=== PATIENT | female | born 1950 | race Caucasian/White ===

== ENCOUNTER 2022-03-27 19:10 | Inpatient (IN) | payer OTHER, BC ==
[2022-03-27 19:52] LABS: Absolute Lymphocytes (CBC) 0.7 K/uL (0.7-4.9); Hematocrit 29.2 % (36.0-45.0); Lymphocytes % 6.4 % (15.3-44.8); MCV 90.1 fL (80-100); MPV 8.5 fL (7.6-11.3); RBC Red Blood Cell Count 3.24 M/uL (3.86-4.86)
[2022-03-27 19:57] LABS: Protime INR 1.37
[2022-03-27 20:11] LABS: Albumin 2.3 g/dL (3.4-5.0); Bilirubin Total 0.5 mg/dL (0.2-1.0); Potassium 3.3 mmol/L (3.5-5.1); Protein, Total 7.1 g/dL (6.4-8.2)
--- NOTE | 2022-03-27 20:28 | RAD REPORT ---
EXAM DESCRIPTION: RAD - Chest Single View - 03/27/2022 8:22 pm CLINICAL HISTORY: CONGESTION Chest pain. COMPARISON: No comparisons FINDINGS: Portable technique limits examination quality. Mild interstitial pulmonary edema. The heart is mildly prominent in size. Sternotomy wires are presen t.Cervical spine hardware plate. IMPRESSION: Mild CHF.
--- NOTE | 2022-03-27 20:29 | RAD REPORT ---
EXAM DESCRIPTION: RAD - Tib Fib Right - 03/27/2022 8:22 pm CLINICAL HISTORY: PAIN COMPARISON: No comparisons FINDINGS: Soft tissue swelling is seen involving the leg and ankle. Advanced degenerative change inv olves the ankle. No acute fracture seen.
--- NOTE | 2022-03-27 20:29 | RAD REPORT ---
EXAM DESCRIPTION: RAD - Knee Right 3 View - 03/27/2022 8:22 pm CLINICAL HISTORY: PAIN COMPARISON: No comparisons FINDINGS: Mild tricompartmental osteoarthritis. No fracture or dislocation seen. No radiographic fin ding to indicate osteomyelitis.
--- NOTE | 2022-03-27 20:31 | RAD REPORT ---
EXAM DESCRIPTION: RAD - Foot Right 3 View - 03/27/2022 8:22 pm CLINICAL HISTORY: SWELLING COMPARISON: No comparisons FINDINGS: Marked flatfoot deformity is present. Advanced degenerative changes are present in the ank le. No soft tissue gas seen. No acute fracture. No radiographic finding to indicate osteomyelitis.
[2022-03-27 20:32] LABS: Blood Morphology Comment NOT SEEN (NOT SEEN); Platelet Estimate ADEQ
[2022-03-27] MEDS ORDERED: VANCOMYCIN 1 GM/VIAL ONE (20:39)
[2022-03-27] MEDS ORDERED: ACETAMINOPHEN 500 MG TAB ONE (20:39)
[2022-03-27] MEDS ORDERED: NA CHLORIDE 0.9% 100 ML ONE (20:40)
[2022-03-27] MEDS ORDERED: PIPERACIL/TAZO 3.375 GM VIAL IV ONE (20:40)
[2022-03-27] MEDS ORDERED: NA CHLORIDE 0.9% 250 ML ONE (20:40)
[2022-03-27] MEDS ORDERED: NA CHLORIDE 0.9% 1,000 ML ONE (20:40)
--- NOTE | 2022-03-27 20:40 | RAD REPORT ---
EXAM DESCRIPTION: US - Extrem Venous W Compress Samir - 03/27/2022 8:31 pm CLINICAL HISTORY: PAIN Bilateral leg edema and swelling. COMPARISON: Extremity Venous Uni Ltd dated 03/11/2022 TECHNIQUE: Real-time sonographic interrogation of the left and right lower extremity deep venous sys tems was performed. FINDINGS: Normal compressibility, flow augmentation, phasic flow and spontaneous flow is identified in both the left and right lower extremity deep venous systems. IMPRESSION: No sonographic evidence of left or right lower extremity deep venous thrombosis.
--- NOTE | 2022-03-27 20:41 | RAD REPORT ---
EXAM DESCRIPTION: US - Lower Extremity Arterial Bilat - 03/27/2022 8:31 pm CLINICAL HISTORY: PAIN COMPARISON: No comparisons TECHNIQUE: Bilateral lower extremity arterial Doppler examination was performed with velocity measur ements. FINDINGS: Right lower extremity arterial system is triphasic. Left lower extremity arterial system is triphasic to biphasic, however generally monophasic in appear ance in the dorsalis pedis. No complete occlusion or high-grade stenosis. IMPRESSION: Mild distal peripheral vascular disease left lower extremity.
--- NOTE | 2022-03-27 20:48 | RAD REPORT ---
EXAM DESCRIPTION: CT - Head Brain Wo Cont - 03/27/2022 8:42 pm CLINICAL HISTORY: Generalized weakness Headache, drowsiness COMPARISON: Foot Right 3 View dated 03/27/2022 TECHNIQUE: All CT scans are performed using dose optimization technique as appropriate and may inclu de automated exposure control or mA/KV adjustment according to patient size. FINDINGS: No intracranial hemorrhage, hydrocephalus or extra-axial fluid collection.Moderate general ized brain atrophy is present with mild periventricular and deep white matter chronic microvascular i schemic changes.No areas of brain edema or evidence of midline shift. The paranasal sinuses and mastoids are clear. The calvarium is intact. IMPRESSION: No acute intracranial abnormality.
[2022-03-27 21:33] LABS: Urine Blood 2+ (Negative); Urine Glucose Negative (Negative); Urine Protein 1+ (Negative)
[2022-03-27 22:16] LABS: Urine Bacteria >50 /HPF (<20); Urine RBC 21-50 /HPF (None Seen)
--- NOTE | 2022-03-27 22:45 | ER ---
Nurse's Notes [facility] Name: Sakshi Ferrell Age: 71 yrs Sex: Female : 1950 Arrival Date: 03/27/2022 Time: 19:13 Bed 5 Private MD: Diagnosis: UTI/ Urinary tract infection, site not specified;Cellulitis of right lower limb;Muscle weakness (generalized) Presentation: 03/27 19:18 Chief complaint: EMS states: pt has been weak over the last several days, today pt fell as6 d/t weakness, pt has wounds to BLE, denies any injuries from fall, neg LOC. Coronavirus screen: At this time, the client does not indicate any symptoms associated with coronavirus-19. Ebola Screen: No symptoms or risks identified at this time. Initial Sepsis Screen: Does the patient meet any 2 criteria? RR > 20 per min. Temp <36.0*C (96.8*F)) or > 38.3*C (100.9*F). HR > 90 bpm. Yes Does the patient have a suspected source of infection? Yes: Skin breakdown/wound. Risk Assessment: Do you want to hurt yourself or someone else? Patient reports no desire to harm self or others. Onset of symptoms is unknown. Care prior to arrival: Medication(s) given: Normal saline infusion, IV initiated. 18 GA, in the left antecubital area. 19:18 Method Of Arrival: EMS: [facility] as6 19:18 Acuity: ISMA 2 as6 Historical: - Allergies: 19:22 No Known Allergies; as6 - PMHx: 19:22 Degenerative disc disease; Depression; Hyperlipidemia; Diabetes mellitus; Hypertensive as6 disorder; - PSHx: 19:22 open heart; as6 - Immunization history:: Adult Immunizations up to date. - Social history:: Smoking status: Patient denies any tobacco usage or history of. Screenin:23 Abuse screen: Denies threats or abuse. Denies injuries from another. Nutritional as6 screening: No deficits noted. Tuberculosis screening: No symptoms or risk factors identified. Fall Risk Fall in past 12 months (25 points). Total Hu Fall Scale indicates Low Risk Score (25-44 pts). Side Rails Up X 2 Frequent Obs/Assesments occuring As available Patient and Family Educated on Fall Prevention Program and strategies. Assessment: 19:25 General: Appears unkempt, Behavior is calm, cooperative. Pain: Complains of pain in as6 buttocks, right leg and left leg. Neuro: Level of Consciousness is awake, alert, obeys commands, Oriented to person, place, time, situation. Cardiovascular: Rhythm is sinus tachycardia. Cardiovascular: Edema is 3+ to left midcalf, left ankle, left foot, left toes, right midcalf, right ankle, right foot and right toes pitting to left midcalf, left ankle, left foot, left toes, right midcalf, right ankle, right foot and right toes. Respiratory: Respiratory effort is even, unlabored. Derm: Wound noted right leg and left leg Wound is diabetic ulcers, BLE weeping. Vital Signs: 19:18 BP 115 / 76; Pulse 104; Resp 21 S; Temp 101.0(O); Pulse Ox 96% on R/A; Weight 74.84 kg as6 (R); Height 5 ft. 4 in. (162.56 cm) (R); Pain 8/10; 20:30 BP 126 / 66; Pulse 107; Resp 15 S; Pulse Ox 96% on R/A; as6 22:54 Temp 99(O); tw5 22:54 Pulse 94; tw5 19:18 Body Mass Index 28.32 (74.84 kg, 162.56 cm) as6 ED Course: 19:13 Patient arrived in ED. wm 19:18 Randell Black, ANAYELI is Primary Nurse. as6 19:21 Bonifacio Whitley MD is Attending Physician. 7 19:22 Triage completed. as6 19:23 Arm band placed on. as6 19:23 Bed in low position. Call light in reach. Side rails up X2. Client placed on continuous as6 cardiac and pulse oximetry monitoring. NIBP monitoring applied. 20:24 Chest Single View XRAY In Process Unspecified. EDMS 20:24 Knee Right 3 View XRAY In Process Unspecified. EDMS 20:24 Tib Fib Right XRAY In Process Unspecified. EDMS 20:24 Foot Right 3 View XRAY In Process Unspecified. EDMS 20:33 US Extremity Venous W Compression Samir In Process Unspecified. EDMS 20:33 US LE Arterial Bilateral In Process Unspecified. EDMS 20:44 CT Head Brain wo Cont In Process Unspecified. EDMS 21:00 Maintain EMS IV. Dressing intact. Good blood return noted. Site clean \\T\\ dry. Gauge \\T\\ as 6 site: 18g LAC. 21:37 COVID-19 SARS RT PCR (Document "Date of Onset" if Symptomatic) Sent. kd3 21:37 Influenza Screen (a \\T\\ B) Sent. kd3 21:43 COVID-19 SARS RT PCR (Document "Date of Onset" if Symptomatic) Sent. kd3 21:43 Influenza Screen (a \\T\\ B) Sent. kd3 22:44 De Roth MD is Hospitalizing Provider. 7 23:43 No provider procedures requiring assistance completed. Patient admitted, IV remains in as6 place. Administered Medications: 20:23 CANCELLED (Duplicate Order): Acetaminophen 1000 mg PO once kd3 21:17 Drug: Acetaminophen 1000 mg Route: PO; kd3 23:44 Follow up: Response: No adverse reaction as6 21:18 Drug: NS 0.9% 1000 ml Route: IV; Rate: 1000 ml; Site: left antecubital; kd3 23:45 Follow up: Response: No adverse reaction; IV Status: Infusion continued; IV Intake: as6 1000ml 21:37 Drug: Zosyn (piperacillin-tazobactam) 3.375 grams Route: IVPB; Infused Over: 60 mins; kd3 Site: left antecubital; 21:42 Follow up: IV Status: Completed infusion kd3 21:42 Drug: vancoMYCIN 1 grams Route: IVPB; Infused Over: 2 hrs; Site: left antecubital; kd3 23:45 Follow up: Response: No adverse reaction; IV Status: Infusion continued; IV Intake: as6 250ml Medication: 21:38 VIS not applicable for this client. kd3 Intake: 23:45 IV: 1000ml; Total: 1000ml. as6 23:45 IV: 250ml; Total: 1250ml. as6 Outcome: 22:45 Decision to Hospitalize by Provider. [facility] 23:44 Admitted to Med/surg accompanied by tech, family with patient, via stretcher, room 219, as6 with chart, Report called to Loreta GUADALUPE 23:44 Condition: stable 23:44 Instructed on the need for admit. 23:51 Patient left the ED. as6 Signatures: Dispatcher [employer] Bonifacio Monzon MD MD mh7 Carol Quintero Tiffany tw5 Randell Black RN RN as6 Cheryl Mathis RN RN kd3
--- NOTE | 2022-03-27 22:46 | EDPHYS ---
Physician Documentation [facility] Name: Sakshi Ferrell Age: 71 yrs Sex: Female : 1950 Arrival Date: 03/27/2022 Time: 19:13 Bed 5 Private MD: ED Physician Bonifacio Whitley HPI: 03/27 19:25 This 71 yrs old Female presents to ER via EMS with complaints of General Weakness. mh7 19:25 The patient's problem is reported as weakness, that is generalized. Onset: The mh7 symptoms/episode began/occurred 3 day(s) ago. Duration: The episode is continuous. Context: the episode(s) was witnessed, by no one, symptoms became apparent at an unknown time, occurred at home, occurred while the patient was standing. The symptoms are alleviated by nothing. The symptoms are aggravated by standing. Associated signs and symptoms: Pertinent positives: weakness, Pertinent negatives: abdominal pain, agitation, ataxia, blurred vision, chest pain, combativeness, confusion, diaphoresis, diarrhea, dizziness, headache, lightheadedness, nausea, numbness, palpitations, seizure, shortness of breath, tingling, vertigo, vomiting. Severity of symptoms: At their worst the symptoms were moderate 2 day(s) ago, in the emergency department the symptoms are unchanged. Historical: - Allergies: 19:22 No Known Allergies; as6 - PMHx: 19:22 Degenerative disc disease; Depression; Hyperlipidemia; Diabetes mellitus; Hypertensive as6 disorder; - PSHx: 19:22 open heart; as6 - Immunization history:: Adult Immunizations up to date. - Social history:: Smoking status: Patient denies any tobacco usage or history of. ROS: 19:25 Constitutional: Negative for fever, chills, and weight loss, Eyes: Negative for injury, mh7 pain, redness, and discharge, ENT: Negative for injury, pain, and discharge, Neck: Negative for injury, pain, and swelling, Cardiovascular: Negative for chest pain, palpitations, and edema, Respiratory: Negative for shortness of breath, cough, wheezing, and pleuritic chest pain, Abdomen/GI: Negative for abdominal pain, nausea, vomiting, diarrhea, and constipation, Back: Negative for injury and pain, : Negative for injury, bleeding, discharge, and swelling. 19:25 Psych: Negative for depression, anxiety, suicide ideation, homicidal ideation, and hallucinations, Allergy/Immunology: Negative for hives, rash, and allergies, Endocrine: Negative for neck swelling, polydipsia, polyuria, polyphagia, and marked weight changes, Hematologic/Lymphatic: Negative for swollen nodes, abnormal bleeding, and unusual bruising. 19:25 Neuro: Negative for altered mental status, dizziness, headache, hearing loss, loss of consciousness, numbness, seizure activity, speech changes, syncope, near syncope, tingling, tinnitus, tremor, visual changes. Exam: 19:25 Head/Face: Normocephalic, atraumatic. Eyes: Pupils equal round and reactive to light, mh7 extra-ocular motions intact. Lids and lashes normal. Conjunctiva and sclera are non-icteric and not injected. Cornea within normal limits. Periorbital areas with no swelling, redness, or edema. ENT: Nares patent. No nasal discharge, no septal abnormalities noted. Tympanic membranes are normal and external auditory canals are clear. Oropharynx with no redness, swelling, or masses, exudates, or evidence of obstruction, uvula midline. Mucous membranes moist. Neck: Trachea midline, no thyromegaly or masses palpated, and no cervical lymphadenopathy. Supple, full range of motion without nuchal rigidity, or vertebral point tenderness. No Meningismus. Chest/axilla: Normal chest wall appearance and motion. Nontender with no deformity. No lesions are appreciated. 19:25 Respiratory: Lungs have equal breath sounds bilaterally, clear to auscultation and percussion. No rales, rhonchi or wheezes noted. No increased work of breathing, no retractions or nasal flaring. Abdomen/GI: Soft, non-tender, with normal bowel sounds. No distension or tympany. No guarding or rebound. No evidence of tenderness throughout. Back: No spinal tenderness. No costovertebral tenderness. Full range of motion. 19:25 Constitutional: The patient appears in no acute distress, alert, awake, uncomfortable. 19:25 Cardiovascular: Rate: tachycardic, Rhythm: regular, Pulses: no pulse deficits are appreciated, Heart sounds: normal, normal S1and S2, Edema: pedal edema, that is mild, JVD: is not appreciated. 19:25 Musculoskeletal/extremity: Extremities: noted in the right leg: erythema, swelling, noted in the left leg: erythema, ROM: limited active range of motion, in the left leg, limited passive range of motion, in the left leg, Circulation is intact in all extremities. Sensation intact. Compartment Syndrome exam of affected extremity: is normal. no numbness, no tingling, no sensation deficit, no palor, no weak pulses, Joints: the right knee displays swelling. 19:25 Skin: cellulitis, that is moderate, confluent, on the left leg. 19:25 Neuro: Orientation: appropriate for stated age, Mentation: appropriate for stated age, Memory: appropriate for stated age, Cranial nerves: grossly normal, Cerebellar function: is grossly normal based on the patient's age, Motor: is grossly normal based on the patient's age, Sensation: no obvious gross deficits, Gait: not tested. seizure activity, is not displayed by the patient, Abnormal movements: there are no abnormal movements. 22:46 Radiologist reports: No acute intracranial findings mh7 Vital Signs: 19:18 BP 115 / 76; Pulse 104; Resp 21 S; Temp 101.0(O); Pulse Ox 96% on R/A; Weight 74.84 kg as6 (R); Height 5 ft. 4 in. (162.56 cm) (R); Pain 8/10; 20:30 BP 126 / 66; Pulse 107; Resp 15 S; Pulse Ox 96% on R/A; as6 22:54 Temp 99(O); tw5 22:54 Pulse 94; tw5 19:18 Body Mass Index 28.32 (74.84 kg, 162.56 cm) as6 MDM: 22:43 Differential diagnosis: CVA, TIA, metabolic disorder, drug effects, Fracture, UTI, mh7 cellulitis. Data reviewed: vital signs, nurses notes, lab test result(s), cardiac enzymes, CBC, electrolytes, Flu: negative urinalysis, EKG, radiologic studies, CT scan, plain films, ultrasound. Data interpreted: Pulse oximetry: on room air is 96 %. Interpretation: normal. Counseling: I had a detailed discussion with the patient and/or guardian regarding: the historical points, exam findings, and any diagnostic results supporting the discharge/admit diagnosis, the presence of at least one elevated blood pressure reading (>120/80) during this emergency department visit, lab results, radiology results, the need for further work-up and treatment in the hospital. Response to treatment: the patient's symptoms have mildly improved after treatment. 22:45 Patient medically screened. [facility] 03/27 19:31 Order name: Blood Culture Adult (2) [facility] 03/27 19:31 Order name: CBC with Diff; Complete Time: 21:00 [facility] 03/27 19:31 Order name: CMP; Complete Time: 21:00 [facility] 03/27 19:31 Order name: Lactate; Complete Time: 21:00 [facility] 03/27 19:31 Order name: Protime (+inr); Complete Time: 21:00 [facility] 03/27 19:31 Order name: Ptt, Activated; Complete Time: 21:00 [facility] 03/27 19:31 Order name: Urine Culture [facility] 03/27 19:31 Order name: Urine Microscopic Only; Complete Time: 22:27 [facility] 03/27 19:30 Order name: Chest Single View XRAY; Complete Time: 21:00 [facility] 03/27 19:33 Order name: Knee Right 3 View XRAY; Complete Time: 21:00 [facility] 03/27 19:33 Order name: Tib Fib Right XRAY; Complete Time: 21:00 [facility] 03/27 19:33 Order name: Foot Right 3 View XRAY; Complete Time: 21:00 [facility] 03/27 19:34 Order name: US Extremity Venous W Compression Samir; Complete Time: 21:00 [facility] 03/27 19:39 Order name: COVID-19 SARS RT PCR (Document "Date of Onset" if Symptomatic); Complete [facility] Time: 22:36 03/27 19:39 Order name: Influenza Screen (a \\T\\ B); Complete Time: 22:33 [facility] 03/27 20:32 Order name: Manual Differential; Complete Time: 21:00 [facility] 03/27 21:33 Order name: Urine Dipstick-Ancillary; Complete Time: 21:55 [facility] 03/27 21:35 Order name: Urine Dipstick-Ancillary [facility] 03/27 21:38 Order name: Glucose, Ancillary Testing; Complete Time: 21:55 [facility] 03/27 23:07 Order name: Basic Metabolic Panel [facility] 03/27 23:07 Order name: Basic Metabolic Panel [facility] 03/27 23:07 Order name: CBC with Automated Diff [facility] 03/27 23:07 Order name: CBC with Automated Diff EDMS 03/27 19:30 Order name: Accucheck; Complete Time: 21:37 [facility] 03/27 19:30 Order name: Cardiac monitoring; Complete Time: 19:33 [facility] 03/27 19:30 Order name: EKG - Nurse/Tech; Complete Time: 20:02 [facility] 03/27 19:30 Order name: IV Saline Lock - Large Bore; Complete Time: 19:33 [facility] 03/27 19:30 Order name: Labs collected and sent; Complete Time: 20:27 [facility] 03/27 19:30 Order name: O2 Per Protocol; Complete Time: 19:33 [facility] 03/27 19:30 Order name: O2 Sat Monitoring; Complete Time: 19:33 [facility] 03/27 19:30 Order name: Urine Dipstick-Ancillary (obtain specimen); Complete Time: 21:37 [facility] 03/27 19:31 Order name: Accucheck; Complete Time: 21:37 [facility] 03/27 19:31 Order name: Cardiac monitoring; Complete Time: 19:32 [facility] 03/27 19:31 Order name: EKG - Nurse/Tech; Complete Time: 20:02 [facility] 03/27 19:31 Order name: IV Saline Lock - Large Bore; Complete Time: 19:32 [facility] 03/27 19:31 Order name: Labs collected and sent; Complete Time: 20:23 [facility] 03/27 19:31 Order name: O2 Per Protocol; Complete Time: 19:33 [facility] 03/27 19:31 Order name: O2 Sat Monitoring; Complete Time: 19:33 [facility] 03/27 19:31 Order name: Urine Dipstick-Ancillary (obtain specimen); Complete Time: 21:37 [facility] 03/27 19:37 Order name: US LE Arterial Bilateral; Complete Time: 21:00 [facility] 03/27 19:39 Order name: CT Head Brain wo Cont; Complete Time: 21:00 [facility] 03/27 23:07 Order name: Regular EDMS Administered Medications: 20:23 CANCELLED (Duplicate Order): Acetaminophen 1000 mg PO once kd3 21:17 Drug: Acetaminophen 1000 mg Route: PO; kd3 23:44 Follow up: Response: No adverse reaction as6 21:18 Drug: NS 0.9% 1000 ml Route: IV; Rate: 1000 ml; Site: left antecubital; kd3 23:45 Follow up: Response: No adverse reaction; IV Status: Infusion continued; IV Intake: as6 1000ml 21:37 Drug: Zosyn (piperacillin-tazobactam) 3.375 grams Route: IVPB; Infused Over: 60 mins; kd3 Site: left antecubital; 21:42 Follow up: IV Status: Completed infusion kd3 21:42 Drug: vancoMYCIN 1 grams Route: IVPB; Infused Over: 2 hrs; Site: left antecubital; kd3 23:45 Follow up: Response: No adverse reaction; IV Status: Infusion continued; IV Intake: as6 250ml Disposition Summary: 03/27/22 22:45 Hospitalization Ordered Hospitalization Status: Inpatient Admission [facility] Provider: De Roth [facility] Location: Telemetry/MedSurg (Inpatient) [facility] Condition: Stable [facility] Problem: new [facility] Symptoms: have improved [facility] Bed/Room Type: Standard [facility] Room Assignment: 219(03/27/22 23:32) Diagnosis - UTI/ Urinary tract infection, site not specified 7 - Cellulitis of right lower limb mh7 - Muscle weakness (generalized) [facility] Forms: - Medication Reconciliation Form 7 - SBAR form 7 Signatures: Dispatcher [employer] EDMS Rika Carballo RN RN Bonifacio Whitley MD MD 7 Randell Black RN RN as6 Cheryl Mathis RN RN kd3 Corrections: (The following items were deleted from the chart) 19:34 19:32 Chest Single View+RAD.RAD.BRZ ordered. EDMS EDMS 19:50 19:31 COMPREHENSIVE METABOLIC PANEL+C.LAB.BRZ ordered. EDMS EDMS 19:50 19:31 LACTATE+C.LAB.BRZ ordered. EDMS EDMS 19:51 19:31 CBC+H.LAB.BRZ ordered. EDMS EDMS 19:51 19:31 PROTIME (+INR)+COAG.LAB.BRZ ordered. EDMS EDMS 19:51 19:31 PTT, ACTIVATED+COAG.LAB.BRZ ordered. EDMS EDMS 20:23 19:30 Acetaminophen 1000 mg PO once ordered. kd3 kd3 21:57 19:31 BLOOD CULTURE*+BA.LAB.BRZ ordered. EDMS EDMS 23:32 22:45 mh7
[2022-03-27] MEDS ORDERED: ACETAMINOPHEN 500 MG TAB PO PRN (23:02)
[2022-03-27] MEDS ORDERED: ONDANSETRON 4 MG/2 ML VIAL IV PRN (23:02)
--- NOTE | 2022-03-27 23:40 | P.HP ---
Certification for Inpatient Patient admitted to: Inpatient With expected LOS: >2 Midnights Patient will require the following post-hospital care: Home Health Services Practitioner: I am a practitioner with admitting privileges, knowledge of patient current condition, hospital course, and medical plan of care. Services: Services provided to patient in accordance with Admission requirements found in Title 42 Section 412.3 of the Code of Federal Regulations Patient History Date of Service: 03/28/22 Reason for admission: Sepsis, right lower extremity cellulitis History of Present Illness: 71-year-old female patient with history of depression and osteoarthritis involving the lower extremity who was evaluated in the ED for episode of pain and redness in the right lower extremity. She reported that she been having difficulty ambulating and then she had a fall episode and she bruised her knee and the right. She subsequently developed hyperemia and increased swelling and pain in the right lower extremity. She also had episode of chills and rigors. In the emergency room she was found to have significant hyperemic knee with bruises down to the foot. She was worked up with imaging studies that revealed no acute fracture involving the right lower extremity however she had significant osteoarthritis of the right knee and degenerative changes of the right ankle. She also had a DVT screen that was negative. She was started on broad-spectrum antibiotic therapy and was admitted for inpatient care. Allergies No Known Allergies Allergy (Unverified 12/16/15 17:10) Home Medications: Citalopram Hydrobromide [Citalopram HBr] 40 mg PO DAILY 07/27/21 Gabapentin 300 mg PO TID 07/27/21 Multivit-Min/FA/Lycopen/Lutein [Centrum Silver Tablet] 1 each PO DAILY 07/27/21 Potassium Chloride 20 meq PO DAILY 07/27/21 - Past Medical/Surgical History Diabetic: No -: [place] -: AAA repair -: wrist fx -: bunion sx - Social History Alcohol use: Yes Review of Systems General: Fever, Chills Eyes: Unremarkable ENT: Unremarkable Respiratory: Unremarkable Cardiovascular: Unremarkable Gastrointestinal: Unremarkable Genitourinary: Unremarkable Musculoskeletal: Leg Pain Integumentary: Bruising Neurological: Unremarkable Physical Examination - Physical Exam General: Alert, Oriented x3 HEENT: Atraumatic, Normocephalic Neck: Supple Respiratory: Normal air movement Cardiovascular: Regular rate/rhythm, Normal S1 S2 Gastrointestinal: Soft and benign Musculoskeletal: Swelling, Erythema, Tenderness, Warmth (involving the right leg.) - Studies Laboratory Data (last 24 hrs) 03/27/22 19:35: Sodium 131 L, Potassium 3.3 L, BUN 21 H, Creatinine 0.62, Glucose 116 H, Total Bilirubin 0.5, AST 50 H, ALT 53, Alkaline Phosphatase 265 H 03/27/22 19:30: PT Cancelled, INR Cancelled, APTT Cancelled 03/27/22 19:30: Sodium Cancelled, Potassium Cancelled, BUN Cancelled, Creatinine Cancelled, Glucose Cancelled, Total Bilirubin Cancelled, AST Cancelled, ALT Cancelled, Alkaline Phosphatase Cancelled 03/27/22 19:30: WBC Cancelled, Hgb Cancelled, Hct Cancelled, Plt Count Cancelled 03/27/22 19:25: PT 15.2 H, INR 1.37, APTT 29.5 03/27/22 19:25: WBC 11.3 H, Hgb 9.5 L, Hct 29.2 L, Plt Count 353 Microbiology Data (last 24 hrs): 03/27/22 21:15 Nasopharnyx Influenza Type A Antigen Screen - Final 03/27/22 21:15 Nasopharnyx Influenza Type B Antigen Screen - Final Assessment and Plan - Plan Cellulitis of right lower leg Sepsispresent on admission Plan: Significant hyperemia and infection involving the right lower extremity. There is significant concern for sepsis as source is the right lower extremity soft tissue infection. X-ray did not show any dislocation or bone infection We have obtained blood culture. Will continue empiric antibiotic of cefepime and vancomycin pending further review. Will continue routine care with pain control medications. Will continue IV fluid for cardiovascular support. Will follow cultures and symptomatology closely. Prophylaxis: Lovenox for DVT prophylaxis CODE STATUS: Full code Disposition: We will treat her cellulitis and sepsis and discharge her once clinically stable. - Advance Directives Does patient have a Living Will: No Does patient have a Durable POA for Healthcare: No
[2022-03-28 06:06] LABS: Absolute Lymphocytes (CBC) 1.2 K/uL (0.7-4.9); Hematocrit 28.1 % (36.0-45.0); Lymphocytes % 10.3 % (15.3-44.8); MCV 90.3 fL (80-100); RBC Red Blood Cell Count 3.11 M/uL (3.86-4.86)
[2022-03-28 06:24] LABS: Potassium 3.6 mmol/L (3.5-5.1)
[2022-03-28] MEDS: ENOXAPARIN 40 MG/0.4 ML SQ SCH (08:13)
[2022-03-28] MEDS: CEFEPIME 1 GM in NA CHLORIDE 0.9% 100 ML IV SCH ×2 (08:13→21:08)
[2022-03-28] MEDS: MORPHINE 2 MG/ML SYR IV PRN ×2 (08:23→21:12)
[2022-03-28] MEDS: VANCOMYCIN 1.25 GM in NA CHLORIDE 0.9% 250 ML IVPB SCH ×2 (08:55→21:12)
[2022-03-28] MEDS ORDERED: POTASSIUM CL SA 10 MEQ TAB PO ONE (09:00)
[2022-03-28] MEDS ORDERED: VANCOMYCIN 1.25 GM in NA CHLORIDE 0.9% 250 ML IVPB SCH (09:00)
[2022-03-28] MEDS ORDERED: VANCOMYCIN 1.5 GM in NA CHLORIDE 0.9% 500 ML IVPB SCH (09:00)
[2022-03-28 09:14] LABS: Magnesium 1.8 mg/dL (1.8-2.4); Phosphorus 2.9 mg/dL (2.5-4.9)
--- NOTE | 2022-03-28 12:42 | EKG ---
Test Date: 2022-03-27 Test Time: 19:44:28 Rag Boiler: MEASUREMENT RESULTS: Intervals: Rate: 103 NH: 132 QRSD: 76 QT: 354 QTc: 463 [place]: P: 26 NH: 132 QRS: 42 T: 51 INTERPRETIVE STATEMENTS: Sinus tachycardia Low voltage QRS Nonspecific ST abnormality Abnormal ECG Compared to ECG 12/16/2015 14:44:18 Low QRS voltage now present ST (T wave) deviation now present Sinus rhythm no longer present Prolonged QT interval no longer present Electronically Signed On 03-28-22 12:39:42 CDT by Isac Koroma
--- NOTE | 2022-03-28 13:32 | P.PN ---
Subjective Date of Service: 03/28/22 Chief Complaint: Sepsis, right lower extremity cellulitis Subjective: Improving No acute events since admission. She reports that her right lower extremity pain has improved. No fevers since admission. Review of Systems General: Unremarkable Eyes: Unremarkable ENT: Unremarkable Respiratory: Unremarkable Cardiovascular: Unremarkable Gastrointestinal: Unremarkable Genitourinary: Unremarkable Musculoskeletal: Leg Pain (right) Integumentary: Unremarkable Neurological: Unremarkable Lymphatics: Unremarkable Physical Examination - Vital Signs Temperature: 97.6 F Blood Pressure: 147/67 Pulse: 96 Respirations: 18 Pulse Ox (%): 96 - Physical Exam General: Alert, In no apparent distress, Oriented x3 HEENT: Atraumatic, Mucous membr. moist/pink, EOMI, Sclerae nonicteric Neck: Supple, Without JVD or thyroid abnormality Respiratory: Clear to auscultation bilaterally, Normal air movement Cardiovascular: Regular rate/rhythm, Normal S1 S2, No gallops, No rubs, No murmurs, Edema (trace bilateral (right > left)) Gastrointestinal: Normal bowel sounds, Soft and benign, No tenderness, No rebound, No guarding Musculoskeletal: No clubbing Integumentary: Skin lesion (chronic skin wound on left medial ankle - clean, dry, intact), Tenderness/swelling (RLE), Erythema (RLE), Warmth (RLE) Neurological: Normal speech, Normal affect - Studies Laboratory Data (last 24 hrs) 03/27/22 19:35: Sodium 131 L, Potassium 3.3 L, BUN 21 H, Creatinine 0.62, Glucose 116 H, Total Bilirubin 0.5, AST 50 H, ALT 53, Alkaline Phosphatase 265 H 03/27/22 19:30: PT Cancelled, INR Cancelled, APTT Cancelled 03/27/22 19:30: Sodium Cancelled, Potassium Cancelled, BUN Cancelled, Creatinine Cancelled, Glucose Cancelled, Total Bilirubin Cancelled, AST Cancelled, ALT Cancelled, Alkaline Phosphatase Cancelled 03/27/22 19:30: WBC Cancelled, Hgb Cancelled, Hct Cancelled, Plt Count Cancelled 03/27/22 19:25: PT 15.2 H, INR 1.37, APTT 29.5 03/27/22 19:25: WBC 11.3 H, Hgb 9.5 L, Hct 29.2 L, Plt Count 353 Microbiology Data (last 24 hrs): 03/27/22 21:21 Blood - Blood Anaerobic Blood Culture - Final 03/27/22 21:15 Nasopharnyx Influenza Type A Antigen Screen - Final 03/27/22 21:15 Nasopharnyx Influenza Type B Antigen Screen - Final Medications List Reviewed: Yes Assessment And Plan - Plan # Sepsis likely secondary to Right Lower Extremity Cellulitis +/- Urinary Tract Infection # Mild Distal Left Lower Extremity Peripheral Vascular Disease # Microscopic Hematuria She met SIRS criteria based on temperature > 100.9 F, HR > 90 bpm, and RR > 20 breaths/min, and the suspected source is RLE cellulitis. - Sepsis order set was initiated on admission - Initial Lactate was 1.4 - Blood cultures drawn before antibiotics were given - Broad spectrum antibiotics started: Vancomycin + Piperacillin-Tazobactam (switched to Vancomycin + Cefepime) - In regards to fluids: - 30 mL/kg of IV fluids was not administered given SBP > 90, MAP > 65, lactic acid < 4 mmol/L - Infectious evaluation: - UA = 2+ ketones, 2+ blood, 3+ leukocyte esterase, 21-50 RBCs, >50 WBCs, >50 bacteria - Follow-up with PCP for further evaluation of microscopic hematuria - CXR = "Mild CHF." - Right foot x-ray = "Marked flatfoot deformity is present. Advanced degenerative changes are present in the ankle. No soft tissue gas seen. No acute fracture. No radiographic finding to indicate osteomyelitis." - Right knee x-ray = "Mild tricompartmental osteoarthritis. No fracture or dislocation seen. No radiographic finding to indicate osteomyelitis." - Right tib/fib x-ray = "Soft tissue swelling is seen involving the leg and ankle. Advanced degenerative change involves the ankle. No acute fracture seen." - Bilateral lower extremity Doppler = "No sonographic evidence of left or right lower extremity deep venous thrombosis." - Bilateral lower extremity arterial Doppler = "Mild distal peripheral vascular disease left lower extremity." - CT head = "No acute intracranial abnormality." # History of Ruptured Thoracic Aorta s/p Repair (2016) # Hypertension # Hyperlipidemia - Resume home medications once verified - Aggressive blood pressure control Vernon Viramontes MD
[2022-03-28] MEDS ORDERED: POTASSIUM 25 MEQ EFFERV TAB PO ONE (14:00)
[2022-03-29] MEDS: MORPHINE 2 MG/ML SYR IV PRN ×3 (01:13→16:45)
[2022-03-29 06:41] LABS: Hematocrit 33.1 % (36.0-45.0); MCV 88.7 fL (80-100); RBC Red Blood Cell Count 3.74 M/uL (3.86-4.86)
[2022-03-29 06:44] LABS: Potassium 4.2 mmol/L (3.5-5.1)
[2022-03-29] MEDS: VANCOMYCIN 1.25 GM in NA CHLORIDE 0.9% 250 ML IVPB SCH (09:00)
[2022-03-29] MEDS: ENOXAPARIN 40 MG/0.4 ML SQ SCH (09:41)
[2022-03-29] MEDS: CEFEPIME 1 GM in NA CHLORIDE 0.9% 100 ML IV SCH (09:41)
[2022-03-29] MEDS ORDERED: HYDROCODONE/APAP 5/325 MG TAB PO PRN (09:54)
--- NOTE | 2022-03-29 12:09 | P.CNS ---
Date of Consult: 03/29/22 Chief Complaint: Sepsis, right lower extremity cellulitis History of Present Illness: The patient is a 71-year-old female with a past medical history of depression and osteoarthritis involving her bilateral lower extremities who presented to the ED secondary to pain and redness that began on her right knee and progressed down to her lower extremity. Patient states that the symptoms began on last Monday and due to this she has been unable to ambulate. Symptoms first began last Monday when patient was unable to stand from a seating position and as such fell onto the carpet and rubbed her knee creating a superficial wound. Patient states that she was still unable to ambulate and soiled herself. Of note, patient also has a wound to her left medial lower extremity. Patient states that the wound has been there "forever". She follows up outpatient with Dr. Leonard. Patient is slightly poor historian, she states that she uses a powder on the wound and wraps it daily however does not remember what powder it is. She states that she follows up with Dr. Leonard every Monday and the wound care center at our facility. Blood cultures obtained on 03/27 grew gram-positive cocci in clusters, speciation/susceptibility pending. Urine culture grew gram-negative rods, speciation/susceptibility pending. Patient denies dysuria, increased urinary frequency/urgency, lower back/abdominal pain, pyuria, or hematuria at this time. Chest x-ray showed mild interstitial pulmonary edema. X-ray imaging of right knee to ankle showed osteoarthritis and soft tissue swelling. Bilateral venous Doppler negative for DVT, arterial Doppler showed mild distal peripheral vascular disease of the left lower extremity. Due to gram-positive bacteremia, transthoracic echocardiogram is currently pending. Need for transesophageal echocardiogram will be determined by blood culture speciation. Patient currently is on vancomycin and cefepime. Pertinent positive ROS includes right lower extremity swelling, warmth to touch, and tenderness. All are other pertinent ROS is negative. Allergies No Known Allergies Allergy (Unverified 12/16/15 17:10) Home Medications: Citalopram Hydrobromide [Citalopram HBr] 40 mg PO DAILY 07/27/21 Gabapentin 300 mg PO TID 07/27/21 Multivit-Min/FA/Lycopen/Lutein [Centrum Silver Tablet] 1 each PO DAILY 07/27/21 Potassium Chloride 20 meq PO DAILY 07/27/21 - Past Medical/Surgical History Diabetic: No -: [place] -: AAA repair -: wrist fx -: bunion sx - Social History Alcohol use: Yes CD- Drugs: No Caffeine use: Yes Place of Residence: Home Review of Systems 10-point ROS is otherwise unremarkable Physical Examination Temp Pulse Resp BP Pulse Ox 98.3 F 97 H 18 139/75 98 03/29/22 08:00 03/29/22 08:00 03/29/22 09:47 03/29/22 08:00 03/29/22 09:47 General: Alert, In no apparent distress, Oriented x3 HEENT: Atraumatic, Normocephalic Neck: Supple, JVD not distended Respiratory: Clear to auscultation bilaterally, Normal air movement Cardiovascular: No edema, Normal pulses, No murmurs (Auscultated in an upright relaxed position, left lateral decubitus position, and with patient leaning forward holding inhalation) Capillary refill: <2 Seconds Gastrointestinal: Normal bowel sounds, Soft and benign Integumentary: Other (Venous stasis ulceration to left lateral lower extremity. Wound is dry with no foul odor. Right knee superficial wound, periwound tissue edema and erythema) Urinary: Other (Pure wick) Conclusions/Impression: Antibiotics: Vancomycin: 03/28current Cefepime: 03/28current Assessment/plan Gram-positive bacteremia -Blood cultures obtained on 03/27 grew gram-positive cocci in both aerobic bottles in 1 anaerobic bottle. Speciation/susceptibility pending. Recommend continuing vancomycin at this time. CANDICE CANDICE pending, need for CANDICE will be determined by speciation of blood culture -Repeat blood cultures obtained on 03/29 pending Source of infection: Likely right lower extremity cellulitis/wound -No clinical signs of endocarditis noted at this time Right lower extremity cellulitis with superficial wound Wound has scabbed over, leave FELICIA at this time Keep leg elevated Continue IV vancomycin -X-ray imaging from knee to ankle demonstrated osteoarthritis and soft tissue swelling Venous Doppler negative for DVT Arterial Doppler demonstrated mild distal peripheral arterial disease of the left lower extremity Left lower extremity venous ulceration Patient follows up with Dr. Leonard outpatient She states that she uses a powder on the wound daily and wraps it however does not recall the name of the powder. She would like to continue her current treatment. I have left a voice message with Dr. Slate to determine exactly what powder was used and if we have it available at our facility. In the meantime can leave area FELICIA. Positive urine culture Preliminary report growing gram-negative rods Patient completely asymptomatic at this time Recommend discontinuing cefepime Leukocytosis Increase noted on today's labs, recommend repeating Patient remains afebrile and hemodynamically stable Anemia Continue to monitor H&H, stable at this time Plan of care discussed with Dr. Smith Thank you for consultation
--- NOTE | 2022-03-29 14:13 | ECHO ---
HEIGHT: 5 ft 4 in WEIGHT: 175 lb 0 oz DATE OF STUDY: 03/29/[address]: Vernon Viramontes MD 2-DIMENSIONAL: YES M.MODE: YES DOPPLER: YES COLOR FLOW: YES TDS: YES PORTABLE: YES DEFINITY: NO BUBBLE STUDY: NO DIAGNOSIS: RULE OUT ENDOCARDITIS CARDIAC HISTORY: CATHERIZATION: NO SURGERY: YES PROSTHETIC VALVE: NO PACEMAKER: NO MEASUREMENTS (cm) DIASTOLIC (NORMALS) SYSTOLIC (NORMALS) IVSd 1.2 (0.6-1.2) LA Diam 3.1 (1.9-4.0) LVEF 55-60% LVIDd 3.8 (3.5-5.7) LVIDs 2.8 (2.0-3.5) %FS 27% LVPWd 1.3 (0.6-1.2) Ao Diam 2.9 (2.0-3.7) 2 DIMENSIONAL ASSESSMENT: RIGHT ATRIUM: NORMAL LEFT ATRIUM: NORMAL RIGHT VENTRICLE: NORMAL LEFT VENTRICLE: NORMAL TRICUSPID VALVE: NORMAL MITRAL VALVE: NORMAL PULMONIC VALVE: NORMAL AORTIC VALVE: NORMAL PERICARDIAL EFFUSION: NONE AORTIC ROOT: NORMAL LEFT VENTRICULAR WALL MOTION: NORMAL DOPPLER/COLOR FLOW: TRACE MITRAL REGURGITATION. COMMENTS: NORMAL LEFT VENTRICULAR EJECTION FRACTION 55-60%. NORMAL WALL MOTION. NO CLEAR EVIDENCE OF VEGETATIONS BUT VIEWS ARE LIMITED, RECOMMEND CANDICE IF CLINICALLY INDICATED. TRACE MITRAL REGURGITATION. TECHNOLOGIST: Danyel PRUITT
--- NOTE | 2022-03-29 14:22 | P.PN ---
Subjective Date of Service: 03/29/22 Chief Complaint: Sepsis, right lower extremity cellulitis No acute events overnight. She reports that she feels significantly better and her right lower extremity pain is improving daily. Yesterday, her blood cultures returned positive for gram-positive cocci in clusters, but speciati on/susceptibilities are pending. Review of Systems General: Unremarkable Eyes: Unremarkable ENT: Unremarkable Respiratory: Unremarkable Cardiovascular: Unremarkable Gastrointestinal: Unremarkable Genitourinary: Unremarkable Musculoskeletal: Leg Pain (right) Integumentary: Rash (cellulitis of RLE) Physical Examination - Vital Signs Temperature: 97.0 F Blood Pressure: 150/68 Pulse: 88 Respirations: 16 Pulse Ox (%): 97 - Studies Microbiology Data (last 24 hrs): 03/27/22 19:35 Blood - Blood Blood Culture Gram Stain - Final 03/27/22 21:21 Blood - Blood Gram Stain - Final Medications List Reviewed: Yes Assessment And Plan - Plan PHYSICAL EXAMINATION: General: Alert, In no apparent distress, Oriented x3 HEENT: Atraumatic, Mucous membr. moist/pink, EOMI, Sclerae nonicteric Neck: Supple, Without JVD or thyroid abnormality Respiratory: Clear to auscultation bilaterally, Normal air movement Cardiovascular: Regular rate/rhythm, Normal S1 S2, No gallops, No rubs, No murmurs, Edema (trace bilateral (right > left)) Gastrointestinal: Normal bowel sounds, Soft and benign, No tenderness, No rebound, No guarding Musculoskeletal: No clubbing Integumentary: Skin lesion (chronic skin wound on left medial ankle - clean, dry, intact), Tenderness/swelling (RLE), Erythema (RLE), Warmth (RLE) Neurological: Normal speech, Normal affect # Sepsis likely secondary to Right Lower Extremity Cellulitis with Gram-Positive Bacteremia # Suspect Gram-Negative Asymptomatic Bacteruria # Mild Distal Left Lower Extremity Peripheral Vascular Disease # Microscopic Hematuria She met SIRS criteria based on temperature > 100.9 F, HR > 90 bpm, and RR > 20 breaths/min, and the suspected source is RLE cellulitis. - Sepsis order set was initiated on admission - Initial Lactate was 1.4 - Blood cultures drawn before antibiotics were given - Broad spectrum antibiotics started: Vancomycin + Piperacillin-Tazobactam (switched to Vancomycin + Cefepime) - In regards to fluids: - 30 mL/kg of IV fluids was not administered given SBP > 90, MAP > 65, lactic acid < 4 mmol/L - Infectious evaluation: - UA = 2+ ketones, 2+ blood, 3+ leukocyte esterase, 21-50 RBCs, >50 WBCs, >50 bacteria - Follow-up with PCP for further evaluation of microscopic hematuria - CXR = "Mild CHF." - Right foot x-ray = "Marked flatfoot deformity is present. Advanced degenerative changes are present in the ankle. No soft tissue gas seen. No acute fracture. No radiographic finding to indicate osteomyelitis." - Right knee x-ray = "Mild tricompartmental osteoarthritis. No fracture or dislocation seen. No radiographic finding to indicate osteomyelitis." - Right tib/fib x-ray = "Soft tissue swelling is seen involving the leg and ankle. Advanced degenerative change involves the ankle. No acute fracture seen." - Bilateral lower extremity Doppler = "No sonographic evidence of left or right lower extremity deep venous thrombosis." - Bilateral lower extremity arterial Doppler = "Mild distal peripheral vascular disease left lower extremity." - CT head = "No acute intracranial abnormality." - Consulted Cardiology for possible RIGO given gram-positive bacteremia - Repeat blood cultures pending - TTE = "normal left ventricular ejection fraction 55-60%. normal wall motion. no clear evidence of vegetations but views are limited, recommend rigo if clinically indicated. trace mitral regurgitation." - Initiated transfer to RIGO-capable facility # History of Ruptured Thoracic Aorta s/p Repair (2016) # Hypertension # Hyperlipidemia - Resume home medications once verified - Blood pressure control Vernon Viramontes MD Discharge Plan: Transfer
[2022-03-29] MEDS ORDERED: VANCOMYCIN 1.5 GM in NA CHLORIDE 0.9% 500 ML IVPB SCH (15:00)
--- NOTE | 2022-03-29 18:02 | P.DS ---
Admission Date: 03/27/22 Discharge Date: 03/29/22 Disposition: TRANSFER TO [facility] Comment: [facility] Discharge Condition: GOOD Reason for Admission: Sepsis, right lower extremity cellulitis Consultations: 1. Infectious Diseases Hospital Course: DIAGNOSES: # Sepsis likely secondary to Right Lower Extremity Cellulitis with Gram-Positive Bacteremia # Suspect Gram-Negative Asymptomatic Bacteruria # Mild Distal Left Lower Extremity Peripheral Vascular Disease # Microscopic Hematuria # History of Ruptured Thoracic Aorta s/p Repair (2016) # Hypertension # Hyperlipidemia HOSPITAL COURSE: Ms. Sakshi Ferrell is a pleasant 71-year-old female with a past medical history significant for hypertension, hyperlipidemia, and remote thoracic aorta rupture s/p repair (2015) who was admitted to the [facility] on 03/27/2022 for right lower extremity cellulitis. Upon further evaluation, she was found to have sepsis secondary to right lower extremity cellulitis. Sepsis protocol was initiated and blood cultures obtained on 03/27/2022 returned positive for gram-positive cocci in clusters in both aerobic bottles in one anaerobic bottle. Speciation/susceptibility are currently pending. Repeat blood cultures from 03/29/2022 currently show no growth to date. A transthoracic echocardiogram revealed, "normal left ventricular ejection fraction 55-60%. Normal wall motion. No clear evidence of vegetations but views are limited, recommend CANDICE if clinically indicated. Trace mitral regurgitation." She will need to have a transesophageal echocardiogram to evaluate for infective endocarditis; however, we are not currently able to provide this service. I have initiated a transfer for her to obtain this procedure and completed a doc-to-doc with Dr. David De León at [facility]. He has generously accepted her for transfer. We will be happy to transfer her back to our facility following the transesophageal echocardiogram. On 03/29/2022, she was seen on rounds and deemed medically stable for transfer. She and her family members were given the opportunity to ask questions and reported no further questions. Furthermore, all questions were answered to the best of my ability. Today, I personally spent 40 minutes on her case, of which greater than 50% of the time was spent in patient education, counseling, and coordination of care as described above. PHYSICAL EXAMINATION: General: Alert, In no apparent distress, Oriented x3 HEENT: Atraumatic, Mucous membr. moist/pink, EOMI, Sclerae nonicteric Neck: Supple, Without JVD or thyroid abnormality Respiratory: Clear to auscultation bilaterally, Normal air movement Cardiovascular: Regular rate/rhythm, Normal S1 S2, No gallops, No rubs, No murmurs, Edema (trace bilateral (right > left)) Gastrointestinal: Normal bowel sounds, Soft and benign, No tenderness, No rebound, No guarding Musculoskeletal: No clubbing Integumentary: Skin lesion (chronic skin wound on left medial ankle - clean, dry, intact), Tenderness/swelling (RLE), Erythema (RLE), Warmth (RLE) Neurological: Normal speech, Normal affect Vital Signs/Physical Exam: Temp Pulse Resp BP Pulse Ox 97.5 F 89 18 180/75 H 97 03/29/22 16:00 03/29/22 16:00 03/29/22 16:45 03/29/22 16:00 03/29/22 16:45 Laboratory Data at Discharge: WBC 18.5 K/uL (4.3-10.9) H D 03/29/22 06:16 Hgb 10.9 g/dL (12.0-15.0) L 03/29/22 06:16 Hct 33.1 % (36.0-45.0) L D 03/29/22 06:16 Plt Count 320 K/uL (152-406) 03/29/22 06:16 PT Cancelled 03/27/22 19:30 INR Cancelled 03/27/22 19:30 APTT Cancelled 03/27/22 19:30 Sodium 137 mmol/L (136-145) 03/29/22 06:16 Potassium 4.2 mmol/L (3.5-5.1) 03/29/22 06:16 BUN 8 mg/dL (7-18) 03/29/22 06:16 Creatinine 0.36 mg/dL (0.55-1.3) L 03/29/22 06:16 Glucose 85 mg/dL (74-106) 03/29/22 06:16 Phosphorus 2.9 mg/dL (2.5-4.9) 03/28/22 08:47 Magnesium 1.8 mg/dL (1.8-2.4) 03/28/22 08:47 Total Bilirubin 0.5 mg/dL (0.2-1.0) 03/27/22 19:35 AST 50 U/L (15-37) H 03/27/22 19:35 ALT 53 U/L (12-78) 03/27/22 19:35 Alkaline Phosphatase 265 U/L (45-117) H 03/27/22 19:35 Home Medications: Citalopram Hydrobromide [Citalopram HBr] 40 mg PO DAILY 07/27/21 Gabapentin 300 mg PO TID 07/27/21 Multivit-Min/FA/Lycopen/Lutein [Centrum Silver Tablet] 1 each PO DAILY 07/27/21 Potassium Chloride 20 meq PO DAILY 07/27/21 Enoxaparin Sodium [Lovenox 40 MG INJ*] 40 mg SQ DAILY syr 03/29/22 Hydrocodone 5/APAP 325 [[place] 5/325*] 1 tab PO Q6H PRN tab 03/29/22 Ondansetron [Zofran*] 4 mg IV Q6HP PRN vial 03/29/22 Followup: Unknown,U [Primary Care Provider] - Time spent managing pt's care (in minutes): 40
[2022-03-29 21:48] VITALS: O2SAT 98
[2022-03-29 21:49] VITALS: BP 159/71; TEMP 98.3
--- OUTSIDE RECORDS SUMMARY | 2022-03-31 11:21 | XMS REPORT | Continuity of Care Document ---
:1950 Author Organization [facility] t Address [address] [place] [address] Care Team Providers Name Role Phone VILMA BUSTOS Attending Clinician Unavailable Gricel Brooks Attending Clinician Unavailable RENAN SMITH Admitting Clinician Unavailable Payers Payer Name Policy Type Policy Number Effective Date Expiration Date S merced MEDICARE A B [id number] 2013 00:00:00 BCBS PPO POS EPO [id number] 2017 CHOICE 00:00:00 Problems This patient has no known problems. Allergies, Adverse Reactions, Alerts Allergy Allergy Status Severity Reaction(s) Onset Inactive Treating Comm ents Source Name Type Date Date Clinician NO KNOWN Allergy Active [facility] Medications Ordered Filled Start Stop Current Ordering Indication Dosage Frequency Signature Comments Components Source Medication Medication Date Date Medication? Clinician (SIG) Name Name Gabapentin Gabapentin Yes Na Brooks 1 capsule Common 05-13 Spirit 00:00: - [facility] 00 [facility] Diclofenac Diclofenac 2019- No Na Brooks 2 gram Common Sodium Sodium 03-06 applicatio Spir it 00:00: 00:00 n to - [facility] 00 :00 affected [facility] Erythromyci Erythromyci Yes Na Brooks 1 Common n n applicatio Spirit n - [facility] Ibuprofen Ibuprofen Yes Na Brooks 1 tablet Common with food Spirit or milk as - [facility] needed [facility] Valtrex Valtrex Yes Na Brooks 1 tablet Co mmon [facility] Celexa Celexa Yes Na Brooks take 1 Common tablet by [facility] mouth once - [facility] daily Once St a day [facility] Center Furosemide Furosemide Yes Na Brooks take 1 Common tablet by [facility] mouth - [facility] every [facility] morning [facility] Calcium Calcium Yes Na Brooks not Common Citrate Citrate defined [facility] Potassium Potassium Yes Na Brooks TAKE 1 Common Chloride Chloride TABLET BY Sp mon[facility] MOUTH ONCE - C HI DAILY [facility] Vitamin D-3 Vitamin D-3 Yes Na Brooks not Common defined [facility] Hydrocodone Hydrocodone Yes Na Brooks 1 tablet Common -Acetaminop -Acetaminop as needed [facility] hen [facility] Lipitor Lipitor Yes Na Brooks TAKE 1 Comm on TABLET BY [facility] MOUTH - [facility] DAILY [facility] Centrum Centrum Yes Na Brooks not Common Silver Silver [facility] CoQ10 CoQ10 Yes Na Brooks not Common defined [facility] Losartan Losartan Yes Na Brooks 1 tablet Common Potassium Potassium Spiri t [facility] Gabapentin Gabapentin Yes Na Brooks 1 tablet Common [facility] Aspirin 81 Aspirin 81 Yes Na Brooks not Common [facility] Multivitami Multivitami Yes Na Brooks 1 tablet Common n n [facility] Iron Iron Yes Na Brooks 1 tablet [facility] labetalol labetalol 2020- No Na Brooks 1 tab Common 04-18 [facility] 00:00 - [facility] :00 [facility] Immunizations Ordered Immunization Filled Immunization Date Status Commen ts Source Name Name FluAD FluAD 2019-10-21 Completed [facility] 00:00:00 [facility] Vital Signs Vital Name Observation Time Observation Value Comments Source HEIGHT 2022-03-29 22:21:00 162.6 cm WEIGHT 2022-03-29 22:21:00 77.474 kg HEIGHT 2022-03-29 22:21:00 162.6 cm WEIGHT 2022-03-29 22:21:00 77.474 kg Procedures This patient has no known procedures. Encounters Start End Encounter Admission Attending Care Care Encounter Source Date/Time Date/Time Type Type Clinicians Facility Department ID 2022-03-29 [facility] [id number] [facility] 21:49:00 VILMA 2021-10-14 Outpatient Brooks, Na STLMLC STLMLC [id number] Common 14:58:00 [facility] 2021-10-06 Outpatient Brooks, Na STLMLC STLMLC [id number] Common 13:57:09 [facility] 2021-10-06 Outpatient Brooks, Na STLMLC STLMLC [id number] Common 13:56:13 [facility] 2021-10-06 Outpatient Brooks, Na STLMLC STLMLC [id number] Common 11:21:16 [id number] [facility] 2021-10-06 Outpatient Brooks, Na STLMLC STLMLC [id number] Common 11:06:22 [id number] [facility] 2021-10-06 Outpatient Brooks, Na STLMLC STLMLC [id number] Common 11:06:06 [id number] [facility] 2022-01-13 2022-01-13 ambulatory STLMLC STLMLC [id number] Common 00:00:00 00:00:00 [facility] 2021-10-13 2021-10-13 ambulatory STLMLC STLMLC [id number] Common 00:00:00 00:00:00 [facility] 2021-10-12 2021-10-12 ambulatory STLMLC STLMLC [id number] Common 00:00:00 00:00:00 [facility] 2021-09-08 2021-09-08 ambulatory STLMLC STLMLC [id number] Common 00:00:00 00:00:00 [facility] 2021-08-20 2021-08-20 ambulatory STLMLC STLMLC [id number] Common 00:00:00 00:00:00 [facility] 2021-08-17 2021-08-17 ambulatory STLMLC STLMLC [id number] Common 00:00:00 00:00:00 [facility] 2021-07-07 2021-07-07 Outpatient STLMLC STLMLC [id number] Common 00:00:00 00:00:00 [facility] 2021-05-04 2021-05-04 Outpatient STLMLC STLMLC [id number] Common 00:00:00 00:00:00 [facility] 2020-05-13 2020-05-13 [id number] Common 10:00:00 10:00:[address] [facility] 2020-03-09 2020-03-09 [facility] [id number] Common 13:04:00 13:04:[address] [facility] 2020-03-06 2020-03-06 [facility] [id number] Common 14:40:00 14:40:[address] [facility] 2019-10-22 2019-10-22 [facility] [id number] Common 15:02:00 15:02:[address] [facility] 2019-10-21 2019-10-21 [facility] [id number] Common 13:40:00 13:40:[address] [facility] 2019-10-11 2019-10-11 [facility] [id number] Common 16:47:00 16:47:[address] [facility] 2019-02-12 2019-02-12 [facility] [id number] Common 14:00:00 14:00:[address] [facility] 2018-12-11 2018-12-11 [facility] [id number] Common 15:00:00 15:00:00 [facility] Results Test Description Test Time Test Comments Results Result Comments Source VANCOMYCIN LEVEL, TROUGH 2022-03-31 09:03:44 Test Item Value Reference Range Interpretation Comme nts VANCOMYCIN TROUGH (BEAKER) (test code = 522) 16.5 ug/mL 10.0-20.0 Freelance Art Director ID - [id number] 06:22:54 Test Item Value Reference Range Interpretation Comments MAGNESIUM (BEAKER) (test code = 2.2 mg/dL 1.5-3.0 627) Freelance Art Director ID - [id number] ID - [id number] ID - [id number] ID - [id number] METABOLIC [id number] 06:22:49 Test Item Value Reference Range Interpretation Comments SODIUM (BEAKER) 138 meq/L 135-148 (test code = 381) POTASSIUM (BEAKER) 3.9 meq/L 3.6-5.5 (test code = 379) CHLORIDE (BEAKER) 99 meq/L 98-106 (test code = 382) CO2 (BEAKER) (test 24 meq/L 20-29 code = 355) BLOOD UREA NITROGEN 5 mg/dL 10-26 L (BEAKER) (test code = 354) CREATININE (BEAKER) 0.50 mg/dL 0.50-1.20 (test code = 358) GLUCOSE RANDOM 84 mg/dL 70-110 (BEAKER) (test code = 652) CALCIUM (BEAKER) 8.8 mg/dL 8.5-10.5 (test code = 697) EGFR (BEAKER) (test 121 mL/min/1.73 ESTIM ATED GFR IS code = 1092) sq m NOT ACCURATE CREATININE CLEARANCE IN PREDICTING GLOMERULAR FILTRATION RATE . ESTIMATED GFR I S NOT APPLICABLE FOR DIALYSIS PATIEN TS. Freelance Art Director ID - [id number] ID - [id number] ID - [id number] ID - [id number] ID - [id number] ID - [id number] ID - [id number] ID - [id number] ID - [id number] ID - [id number] W/PLT COUNT & AUTO DIFFERENTIAL 2022-03-31 06:15:54 Test Item Value Reference Range Interpretation Comments WHITE BLOOD CELL COUNT (BEAKER) 11.3 K/ L 4.0-10.0 H (test code = 775) RED BLOOD CELL COUNT (BEAKER) 3.03 M/ L 4.00-5.00 L (test code = 761) HEMOGLOBIN (BEAKER) (test code = 9.0 GM/DL 12.0-15.5 L 410) HEMATOCRIT (BEAKER) (test code = 26.3 % 36.0-46.0 L 411) MEAN CORPUSCULAR VOLUME (BEAKER) 86.8 fL 82.0-99.0 (test code = 753) MEAN CORPUSCULAR HEMOGLOBIN 29.7 pg 27.0-33.0 (BEAKER) (test code = 751) MEAN CORPUSCULAR HEMOGLOBIN CONC 34.2 GM/DL 32.0-36.0 (BEAKER) (test code = 752) RED CELL DISTRIBUTION WIDTH 15.6 % 12.0-15.0 H (BEAKER) (test code = 412) PLATELET COUNT (BEAKER) (test 441 K/CU MM 150-430 H code = 756) MEAN PLATELET VOLUME (BEAKER) 10.4 fL 6.0-11.5 (test code = 754) NUCLEATED RED BLOOD CELLS 0 /100 WBC 0-0 (BEAKER) (test code = 413) NEUTROPHILS RELATIVE PERCENT 73 % (BEAKER) (test code = 429) LYMPHOCYTES RELATIVE PERCENT 11 % (BEAKER) (test code = 430) MONOCYTES RELATIVE PERCENT 11 % (BEAKER) (test code = 431) EOSINOPHILS RELATIVE PERCENT 2 % (BEAKER) (test code = 432) BASOPHILS RELATIVE PERCENT 0 % (BEAKER) (test code = 437) NEUTROPHILS ABSOLUTE COUNT 8.27 K/ L 1.80-8.00 H (BEAKER) (test code = 670) LYMPHOCYTES ABSOLUTE COUNT 1.29 K/ L 1.48-4.50 L (BEAKER) (test code = 414) MONOCYTES ABSOLUTE COUNT (BEAKER) 1.21 K/ L 0.00-1.30 (test code = 415) EOSINOPHILS ABSOLUTE COUNT 0.19 K/ L 0.00-0.50 (BEAKER) (test code = 416) BASOPHILS ABSOLUTE COUNT (BEAKER) 0.04 K/ L 0.00-0.20 (test code = 417) IMMATURE GRANULOCYTES-RELATIVE 3 % 0-0 H PERCENT (BEAKER) (test code = 2801) BASIC METABOLIC [id number] 06:05:21 Test Item Value Reference Range Interpretation Comments SODIUM (BEAKER) 136 meq/L 135-148 (test code = 381) POTASSIUM (BEAKER) 3.7 meq/L 3.6-5.5 (test code = 379) CHLORIDE (BEAKER) 98 meq/L 98-106 (test code = 382) CO2 (BEAKER) (test 25 meq/L 20-29 code = 355) BLOOD UREA NITROGEN 5 mg/dL 10-26 L (BEAKER) (test code = 354) CREATININE (BEAKER) 0.50 mg/dL 0.50-1.20 (test code = 358) GLUCOSE RANDOM 82 mg/dL 70-110 (BEAKER) (test code = 652) CALCIUM (BEAKER) 9.2 mg/dL 8.5-10.5 (test code = 697) EGFR (BEAKER) (test 121 mL/min/1.73 ESTIM ATED GFR IS code = 1092) sq m NOT ACCURATE CREATININE CLEARANCE IN PREDICTING GLOMERULAR FILTRATION RATE . ESTIMATED GFR I S NOT APPLICABLE FOR DIALYSIS PATIEN TS. Freelance Art Director ID - LITOOperator ID - LITOOperator ID - LITOOperator ID - LITOOperator ID - LITOOperator ID - LITOOperator ID - LITOOperator ID - LITOOperator ID - LITOOperator ID - LITOHEPATIC FUNCTION [id number] 06:04:20 Test Item Value Reference Range Interpretation Comments TOTAL PROTEIN (BEAKER) (test code = 6.5 gm/dL 6.0-8.5 770) ALBUMIN (BEAKER) (test code = 1145) 2.7 g/dL 3.5-5.0 L BILIRUBIN TOTAL (BEAKER) (test code 0.4 mg/dL 0.1-1.2 = 377) BILIRUBIN DIRECT (BEAKER) (test 0.2 mg/dL 0.0-0.4 code = 706) ALKALINE PHOSPHATASE (BEAKER) (test 85 U/L 30-115 code = 346) AST (SGOT) (BEAKER) (test code = 57 U/L 5-40 H 353) ALT (SGPT) (BEAKER) (test code = 46 U/L 5-50 347) Freelance Art Director ID - LITOOperator ID - LITOOperator ID - LITOOperator ID - LITOOperator ID - LITOOperator ID - LITOOperator ID - [id number] 06:04:04 Test Item Value Reference Range Interpretation Comments MAGNESIUM (BEAKER) (test code = 1.7 mg/dL 1.5-3.0 627) Freelance Art Director ID - LITOOperator ID - LITOOperator ID - LITOOperator ID - PRISCILLA [id number] 06:00:40 Test Item Value Reference Range Interpretation Comments PHOSPHORUS (BEAKER) (test code = 3.7 mg/dL 2.5-4.5 604) Freelance Art Director ID - LITOCBC W/PLT COUNT & AUTO [id number] 05:36:55 Test Item Value Reference Range Interpretation Comments WHITE BLOOD CELL COUNT (BEAKER) 12.0 K/ L 4.0-10.0 H (test code = 775) RED BLOOD CELL COUNT (BEAKER) 3.25 M/ L 4.00-5.00 L (test code = 761) HEMOGLOBIN (BEAKER) (test code = 9.6 GM/DL 12.0-15.5 L 410) HEMATOCRIT (BEAKER) (test code = 27.6 % 36.0-46.0 L 411) MEAN CORPUSCULAR VOLUME (BEAKER) 84.9 fL 82.0-99.0 (test code = 753) MEAN CORPUSCULAR HEMOGLOBIN 29.5 pg 27.0-33.0 (BEAKER) (test code = 751) MEAN CORPUSCULAR HEMOGLOBIN CONC 34.8 GM/DL 32.0-36.0 (BEAKER) (test code = 752) RED CELL DISTRIBUTION WIDTH 15.6 % 12.0-15.0 H (BEAKER) (test code = 412) PLATELET COUNT (BEAKER) (test 417 K/CU MM 150-430 code = 756) MEAN PLATELET VOLUME (BEAKER) 10.6 fL 6.0-11.5 (test code = 754) NUCLEATED RED BLOOD CELLS 0 /100 WBC 0-0 (BEAKER) (test code = 413) NEUTROPHILS RELATIVE PERCENT 75 % (BEAKER) (test code = 429) LYMPHOCYTES RELATIVE PERCENT 10 % (BEAKER) (test code = 430) MONOCYTES RELATIVE PERCENT 10 % (BEAKER) (test code = 431) EOSINOPHILS RELATIVE PERCENT 1 % (BEAKER) (test code = 432) BASOPHILS RELATIVE PERCENT 1 % (BEAKER) (test code = 437) NEUTROPHILS ABSOLUTE COUNT 8.98 K/ L 1.80-8.00 H (BEAKER) (test code = 670) LYMPHOCYTES ABSOLUTE COUNT 1.25 K/ L 1.48-4.50 L (BEAKER) (test code = 414) MONOCYTES ABSOLUTE COUNT (BEAKER) 1.22 K/ L 0.00-1.30 (test code = 415) EOSINOPHILS ABSOLUTE COUNT 0.16 K/ L 0.00-0.50 (BEAKER) (test code = 416) BASOPHILS ABSOLUTE COUNT (BEAKER) 0.08 K/ L 0.00-0.20 (test code = 417) IMMATURE GRANULOCYTES-RELATIVE 3 % 0-0 H PERCENT (BEAKER) (test code = 2805)
--- NOTE | 2022-03-31 20:06 | P.PN ---
Date of Service: 03/31/[address] 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 He verbalized understanding. Vernon Viramontes M.D.
== END 2022-03-29 20:45 | disposition short-term general hospital (02) | DRG 872 ==
LOC: ER 19:10 → ERHOLD 23:02 → 2ND 23:38
PROVIDERS: ADMIT Internal Medicine Nephrology; ATTEND Internal Medicine Nephrology
DX: A41.02 Sepsis due to Methicillin resistant Staphylococcus aureus (principal); L03.115 Cellulitis of right lower limb; L97.929 Non-pressure chronic ulcer of unspecified part of left lower leg with unspecified severity; M17.11 Unilateral primary osteoarthritis, right knee; D64.9 Anemia, unspecified; I73.9 Peripheral vascular disease, unspecified; R31.29 Other microscopic hematuria; R82.71 Bacteriuria; E78.5 Hyperlipidemia, unspecified; I10 Essential (primary) hypertension; B96.20 Unspecified Escherichia coli [E. coli] as the cause of diseases classified elsewhere; I25.2 Old myocardial infarction; Z20.822 Contact with and (suspected) exposure to COVID-19
CPT/HCPCS: 36415; 70450; 71045; 80048; 80053; 80202; 81003; 81015; 82947; 83605; 83735; 84100; 84132; 85025; 85027; 85610; 85730; 87040; 87077; 87086; 87088; 87186; 87205; 87804; 93005; 93306; 93925; 93970; 96365; 96366; 96375; 99285; J0692; J1650; J2270; J2543; J3370; J7030; J7040; J7050; U0003